=== PATIENT | female | born 1985 | race Hispanic/Latino ===

== ENCOUNTER 2017-04-28 21:46 | Observation (INO) | payer OTHER ==
[~2017-04-28] VITALS: Ht 154.9 cm; Wt 81.6 kg
[~2017-04-28 21:46] MED LIST: AEC81 PO
[2017-04-28 22:44] LABS: BASOPHILS % (AUTO) 1.1 % (0.0-5.0); HEMATOCRIT 34.4 % (36-48); LYMPHOCYTES % (AUTO) 35.2 % (21.0-51.0); MEAN CORPUSCULAR HEMOGLOBIN 26.2 pg (27.0-33.0); MEAN CORPUSCULAR HGB CONC 32.9 g/dL (32.0-36.0); MEAN CORPUSCULAR VOLUME 79.6 fL (79-99); MONOCYTES % (AUTO) 6.6 % (3.0-13.0); NEUTROPHILS % (AUTO) 51.1 % (40.0-77.0); PLATELET COUNT (AUTO) 367 K/uL (130-400); RED BLOOD CELL COUNT(AUTO) 4.32 MIL/uL (4.00-5.50); RED CELL DISTRIBUTION WIDTH 17.1 % (11.0-15.5); WHITE BLOOD COUNT (AUTO) 9.2 K/uL (4.8-10.8)
[2017-04-28 23:05] LABS: CARBON DIOXIDE 29 mmol/L (21-32); CHLORIDE 102 mmol/L (101-111); CREATININE 0.7 mg/dL (0.5-1.5); GLOMERULAR FILTR. RATE CALC 104 mL/min (>60); GLUCOSE,RANDOM 96 mg/dL (70-105); POTASSIUM 3.5 mmol/L (3.5-5.1); SODIUM SERUM 138 mmol/L (136-145); UREA NITROGEN, BLOOD 15 mg/dL (7-18)
[2017-04-28 23:08] LABS: INR 1.07 (0.85-1.15); PARTIAL THROMBOPLASTIN TIME 25.2 SEC (26.3-35.5); PROTHROMBIN TIME 11.2 SEC (9.6-11.6)
[2017-04-28 23:29] LABS: ALANINE AMINOTRANSFERASE 21 U/L (12-78); ALBUMIN 3.7 g/dL (3.5-5.0); ASPARTATE AMINOTRANSFERASE 15 U/L (10-37); BILIRUBIN,TOTAL 0.3 mg/dL (0.2-1.0); CREATINE KINASE MB < 0.5 ng/mL (0.5-3.6); CREATINE KINASE, TOTAL 74 U/L (21-232); MYOGLOBIN 11 ng/mL (10-92); TOTAL PROTEIN, SERUM 7.6 g/dL (6.0-8.3)
[2017-04-28] MEDS ORDERED: SODIUM CHLORIDE 0.9% 1000ML 1,000 ML IV ONE (23:48)
[2017-04-28] MEDS ORDERED: LORAZEPAM 2 MG/ML 1 ML VIAL ONE (23:49)
[2017-04-29 01:08] LABS: APPEARANCE,URINE Clear (CLEAR); BILIRUBIN,URINE Negative (NEGATIVE); COLOR,URINE Yellow (YELLOW); GLUCOSE, URINE (UA) Negative (NEGATIVE); KETONES,URINE Negative (NEGATIVE); LEUKOCYTE ESTERASE ,URINE Negative (NEGATIVE); NITRATE,URINE Negative (NEGATIVE); OCCULT BLOOD,URINE Negative (NEGATIVE); PH,URINE 7.5 (5.0-8.0); PROTEIN,URINE Negative (NEGATIVE)
[2017-04-29 01:21] LABS: AMPHET/METH SCREEN,URINE NEGATIVE (NEGATIVE); BARBITURATE SCREEN, URINE NEGATIVE (NEGATIVE); BENZODIAZEPINES SCREEN,URINE NEGATIVE (NEGATIVE); CANNABINOID SCREEN,URINE NEGATIVE (NEGATIVE); COCAINE SCREEN,URINE NEGATIVE (NEGATIVE); OPIATE SCREEN,URINE NEGATIVE (NEGATIVE); PHENCYCLIDINE SCREEN,URINE NEGATIVE (NEGATIVE)
[2017-04-29] MEDS ORDERED: DiphenhydrAMINE HCL 50 MG/ML VIAL ONE (03:22)
[2017-04-29] MEDS ORDERED: PROCHLORPERAZINE EDISYLATE 10 MG/2 ML VIAL ONE (03:22)
[2017-04-29] MEDS ORDERED: ACETAMINOPHEN 325 MG TAB PO PRN ×2 (06:45)
[2017-04-29] MEDS ORDERED: ONDANSETRON HCL 4 MG/2 ML VIAL IV PRN (06:45)
[2017-04-29] MEDS ORDERED: LIDOCAINE HCL-MPF 1% 2ML VIAL IVP PRN (06:45)
[2017-04-29] MEDS ORDERED: HYDRALAZINE HCL 20 MG/ML VIAL IV PRN (06:45)
[2017-04-29] MEDS ORDERED: POTASSIUM CHLORIDE 10% ELIXIR 20 MEQ/15 ML UDCUP PO PRN (06:45)
[2017-04-29] MEDS ORDERED: POTASSIUM CHLORIDE 20 MEQ ERTAB PO PRN (06:45)
[2017-04-29] MEDS ORDERED: POTASSIUM CHLORIDE 20MEQ/100ML 100 ML IV PRN (06:45)
[2017-04-29] MEDS ORDERED: FAMOTIDINE 20MG TAB 20 MG TAB ONE (07:22)
[2017-04-29] MEDS ORDERED: ASPIRIN 325MG EC TAB 325 MG TABLET.DR PO ONE (07:22)
[2017-04-29 08:59] VITALS: BP 118/71
[2017-04-29] MEDS ORDERED: FAMOTIDINE 20MG TAB 20 MG TAB PO SCH (09:00)
[2017-04-29] MEDS ORDERED: DIVA250T25 PO (09:26)
[2017-04-29] MEDS ORDERED: TOPI25CA2 PO (09:26)
[2017-04-29] MEDS ORDERED: GADOBENATE DIMEGLUMINE 20 ML IV ONE (10:03)
[2017-04-29] MEDS ORDERED: LORAZEPAM 2 MG/ML 1 ML VIAL ONE (10:38)
[2017-04-29] MEDS: ASPIRIN 325 MG TABLET PO SCH (10:40)
[2017-04-29] MEDS: FAMOTIDINE 20MG TAB 20 MG TAB PO SCH ×2 (10:41→20:37)
[2017-04-29 11:45] VITALS: BP 145/75
[2017-04-29] MEDS ORDERED: LORAZEPAM 2 MG/ML 1 ML VIAL IVP SCH (12:45)
[2017-04-29 16:00] VITALS: BP 125/76
[2017-04-29 19:45] VITALS: BP 109/63
[2017-04-29] MEDS: FOLIC ACID 1 MG TABLET PO SCH (20:37)
[2017-04-29] MEDS: TOPIRAMATE 25 MG TABLET PO SCH (20:38)
[2017-04-29] MEDS: DIVALPROEX SODIUM 250 MG TABLET.DR PO SCH (20:39)
[2017-04-29 23:30] VITALS: BP 115/60
[2017-04-30 03:53] VITALS: BP 117/70
[2017-04-30 08:12] VITALS: BP 126/77
[2017-04-30] MEDS: DIVALPROEX SODIUM 250 MG TABLET.DR PO SCH (10:54)
[2017-04-30] MEDS: ASPIRIN 325 MG TABLET PO SCH (10:54)
[2017-04-30] MEDS: TOPIRAMATE 25 MG TABLET PO SCH (10:54)
[2017-04-30] MEDS: FAMOTIDINE 20MG TAB 20 MG TAB PO SCH (10:54)
[2017-04-30] MEDS: FOLIC ACID 1 MG TABLET PO SCH (10:54)
[2017-04-30] MEDS ORDERED: TOPI25TA42 PO (12:26)
[2017-04-30] MEDS ORDERED: DIVA250T4 PO (12:26)
== END 2017-04-30 15:15 | disposition home or self-care (01) ==
LOC: EDH 21:46 → EDHIP 04-29 03:32 → 4CH 04-29 08:11
PROVIDERS: ADMIT Internal Medicine; ATTEND Internal Medicine
DX: G23.8 Other specified degenerative diseases of basal ganglia (principal); G43.909 Migraine, unspecified, not intractable, without status migrainosus; Z98.51 Tubal ligation status; Z79.899 Other long term (current) drug therapy
CPT/HCPCS: 36415 ×2; 70450; 70544; 70553; 71045; 80053; 80164; 80305; 81003; 82550; 82553; 82948; 83874; 84484; 85025; 85610; 85730; 93005; 93880; 99291; A4510; A9577; G0378 ×36; J0780; J1200; J2060 ×2; J7030

== ENCOUNTER 2017-11-29 20:57 | Emergency (ER) | payer OTHER ==
[~2017-11-29 20:57] MED LIST changes: +DIVA250T4 PO; +TOPI25TA42 PO
[2017-11-29 21:10] LABS: BASOPHILS % (AUTO) 0.5 % (0.0-5.0); EOSINOPHILS % (AUTO) 3.1 % (0.0-8.0); HEMATOCRIT 37.8 % (36-48); LYMPHOCYTES % (AUTO) 28.6 % (21.0-51.0); MEAN CORPUSCULAR HEMOGLOBIN 28.5 pg (27.0-33.0); MEAN CORPUSCULAR HGB CONC 33.2 g/dL (32.0-36.0); MEAN CORPUSCULAR VOLUME 85.9 fL (79-99); MONOCYTES % (AUTO) 10.5 % (3.0-13.0); NEUTROPHILS % (AUTO) 57.3 % (40.0-77.0); PLATELET COUNT (AUTO) 260 K/uL (130-400); RED CELL DISTRIBUTION WIDTH 15.6 % (11.0-15.5); WHITE BLOOD COUNT (AUTO) 5.9 K/uL (4.8-10.8)
[2017-11-29 21:27] LABS: APPEARANCE,URINE CLEAR (CLEAR); BILIRUBIN,URINE NEGATIVE (NEGATIVE); COLOR,URINE YELLOW (YELLOW); GLUCOSE, URINE (UA) NEGATIVE (NEGATIVE); KETONES,URINE NEGATIVE (NEGATIVE); LEUKOCYTE ESTERASE ,URINE NEGATIVE (NEGATIVE); NITRATE,URINE NEGATIVE (NEGATIVE); OCCULT BLOOD,URINE TRACE-INTACT (NEGATIVE); PROTEIN,URINE NEGATIVE (NEGATIVE)
[2017-11-29 21:32] LABS: ALBUMIN 3.8 g/dL (3.5-5.0); BILIRUBIN,TOTAL 0.4 mg/dL (0.2-1.0); CREATININE 0.5 mg/dL (0.5-1.5); POTASSIUM 3.6 mmol/L (3.5-5.1); TOTAL PROTEIN, SERUM 7.5 g/dL (6.0-8.3)
[2017-11-29 21:32] LABS: HCG,QUAL RESULT NEGATIVE (NEGATIVE)
[2017-11-29 21:34] LABS: AMPHET/METH SCREEN,URINE NEGATIVE (NEGATIVE); BACTERIA,URINE Few /HPF (None Seen); BARBITURATE SCREEN, URINE NEGATIVE (NEGATIVE); BENZODIAZEPINES SCREEN,URINE NEGATIVE (NEGATIVE); CANNABINOID SCREEN,URINE NEGATIVE (NEGATIVE); COCAINE SCREEN,URINE NEGATIVE (NEGATIVE); MUCUS,URINE Rare LPF (None Seen); OPIATE SCREEN,URINE NEGATIVE (NEGATIVE); PHENCYCLIDINE SCREEN,URINE NEGATIVE (NEGATIVE); SQUAMOUS EPITHELIAL CELL,UR Few /HPF (0-2); WBC,URINE 0-1 /HPF (0-1)
[2017-11-29 21:48] LABS: INR 1.12 (0.85-1.15); PROTHROMBIN TIME 11.7 SEC (9.6-11.6)
[2017-11-29] MEDS ORDERED: ASPIRIN 325 MG TABLET ONE (22:01)
== END 2017-11-29 22:13 | disposition home or self-care (01) ==
LOC: EDH 20:57
DX: R07.89 Other chest pain (principal); R51 Headache
CPT/HCPCS: 36415; 71045; 80053; 80305; 81001; 81025; 82550; 83874; 84484; 85025; 85610; 85730; 93005; 94761

== ENCOUNTER 2018-03-13 00:25 | Emergency (ER) | payer OTHER ==
[2018-03-13 00:40] LABS: APPEARANCE,URINE Clear (CLEAR); BILIRUBIN,URINE Negative (NEGATIVE); COLOR,URINE Yellow (YELLOW); GLUCOSE, URINE (UA) Negative (NEGATIVE); KETONES,URINE Negative (NEGATIVE); LEUKOCYTE ESTERASE ,URINE Negative (NEGATIVE); NITRATE,URINE Negative (NEGATIVE); OCCULT BLOOD,URINE Negative (NEGATIVE); PH,URINE 5.5 (5.0-8.0); PROTEIN,URINE Negative (NEGATIVE)
[2018-03-13] MEDS ORDERED: ONDANSETRON HCL 4 MG/2 ML VIAL ONE (01:01)
[2018-03-13] MEDS ORDERED: SODIUM CHLORIDE 0.9% 1000ML 1,000 ML IV ONE (01:01)
[2018-03-13] MEDS ORDERED: FAMOTIDINE/PF 20 MG/2 ML VIAL IV ONE (01:02)
[2018-03-13 01:05] LABS: BASOPHILS % (AUTO) 0.5 % (0.0-5.0); EOSINOPHILS % (AUTO) 8.5 % (0.0-8.0); HEMATOCRIT 38.7 % (36-48); LYMPHOCYTES % (AUTO) 29.4 % (21.0-51.0); MEAN CORPUSCULAR HEMOGLOBIN 28.5 pg (27.0-33.0); MEAN CORPUSCULAR HGB CONC 32.6 g/dL (32.0-36.0); MEAN CORPUSCULAR VOLUME 87.3 fL (79-99); MONOCYTES % (AUTO) 6.4 % (3.0-13.0); NEUTROPHILS % (AUTO) 55.2 % (40.0-77.0); PLATELET COUNT (AUTO) 300 K/uL (130-400); RED BLOOD CELL COUNT(AUTO) 4.43 MIL/uL (4.00-5.50); RED CELL DISTRIBUTION WIDTH 15.4 % (11.0-15.5); WHITE BLOOD COUNT (AUTO) 6.5 K/uL (4.8-10.8)
[2018-03-13 01:13] LABS: CREATININE 0.7 mg/dL (0.5-1.5); POTASSIUM 3.8 mmol/L (3.5-5.1)
[2018-03-13 01:18] LABS: ALBUMIN 3.6 g/dL (3.5-5.0); BILIRUBIN,TOTAL 0.3 mg/dL (0.2-1.0); TOTAL PROTEIN, SERUM 7.3 g/dL (6.0-8.3)
[2018-03-13] MEDS ORDERED: LIDOCAINE HCL 2% VISCOUS 15 ML UDCUP ONE (01:59)
[2018-03-13] MEDS ORDERED: MAG HYDROX/AL HYDROX/SIMETH ES 30 ML SUSP UDCUP ONE (01:59)
== END 2018-03-13 02:11 | disposition home or self-care (01) ==
LOC: EDH 00:25
DX: E86.9 Volume depletion, unspecified (principal); R10.13 Epigastric pain
CPT/HCPCS: 36415; 80053; 81003; 81025; 83690; 85025; 96361; 96374; 96375; 99283; J2405; J3490; J7030